=== PATIENT | female | born 1955 ===

== ENCOUNTER 2016-11-10 18:21 | Emergency (ER) | payer BC ==
[2016-11-10 19:14] VITALS: BP 158/66
--- NOTE | 2016-11-10 19:22 | UC ---
Skin Complaint HPI - HPI Summary HPI Summary: 61 y/o female presents to the urgent care c/o infected mosquito bite in Rt lower leg for the past 3 days. Pt states her RT lower leg is red and swollen and painful to touch. It itches a lot, she has been scathing and she thinks this is the reason it got infected. Pt denies fever, SOB, chest pain, N/V/D. Pt has no other complains . - History of Current Complaint Chief Complaint: UCSkin Time Seen by Provider: 11/10/16 19:19 Stated Complaint: SKIN BUG BITES Hx Obtained From: Patient Onset/Duration: Gradual Onset, Lasting Days, Still Present Skin Exposure Onset/Duration: Days Ago Timing: Constant Onset Severity: Mild Current Severity: Moderate Pain Intensity: 5 Pain Scale Used: 0-10 Numeric Location: Discrete - RT lower leg Character: Swelling, Pruritus, Redness, Painful Aggravating: Touch Alleviating: Antihistamines Associated Signs & Symptoms: Positive: Negative, Tenderness. Negative: Nausea, Vomiting, Numbness, Difficulty Breathing, Fever, Throat Tightening Related History: Insect Bite/Sting - Allergy/Home Medications Allergies/Adverse Reactions: Allergies Allergy/AdvReac Type Severity Reaction Status Date / Time No Known Allergies Allergy Verified 11/10/16 19:14 Home Medications: Home Medications Acetaminophen [Tylenol 8 Hour Arthritis] 1,300 mg PO BID 11/10/16 [History Confirmed 11/10/16] Ascorbic Acid TAB* [Vitamin C TAB*] 500 mg PO DAILY 11/10/16 [History Confirmed 11/10/16] Multiple Vitamins W/ Minerals [Centrum Silver 50+Women] 1 tab PO DAILY 11/10/16 [History Confirmed 11/10/16] Tamsulosin CAP* [Flomax CAP*] 0.4 mg PO BEDTIME 11/10/16 [History Confirmed 02/16] Vitamin E 400 unit PO DAILY 11/10/16 [History Confirmed 11/10/16] Review of Systems Constitutional: Negative Skin: Rash - RT lower leg rash s/p insect bite Eyes: Negative ENT: Negative Respiratory: Negative Cardiovascular: Negative Gastrointestinal: Negative Genitourinary: Negative Motor: Negative Neurovascular: Negative Musculoskeletal: Negative Neurological: Negative Psychological: Negative All Other Systems Reviewed And Are Negative: Yes PMH/Surg Hx/FS Hx/Imm Hx Previously Healthy: Yes Respiratory History: Asthma - Surgical History Surgical History: Yes Surgery Procedure, Year, and Place: TUBAL. TONSILECTOMY - Family History Known Family History: Positive: Hypertension, Diabetes Family History: Pancreatic cancer - Social History Occupation: Employed Full-time Lives: With Family Alcohol Use: Rare Substance Use Type: None Smoking Status (MU): Never Smoked Tobacco Physical Exam Triage Information Reviewed: Yes Appearance: Well-Appearing, No Pain Distress, Well-Nourished, Obese Vital Signs: Initial Vital Signs Temp 98.7 F 11/10/16 19:08 Pulse 98 11/10/16 19:08 Resp 16 11/10/16 19:08 BP 158/66 11/10/16 19:08 Pulse Ox 96 11/10/16 19:08 Vital Signs Reviewed: Yes Eye Exam: Normal Eyes: Positive: Conjunctiva Clear - PERRLA, EOMI, fundi grossly normal ENT Exam: Normal ENT: Positive: Normal ENT inspection, Hearing grossly normal, Pharynx normal, Pharyngeal erythema, TMs normal Dental Exam: Normal Neck exam: Normal Neck: Positive: Supple, Nontender, No Lymphadenopathy Respiratory Exam: Normal Respiratory: Positive: Chest non-tender, Lungs clear, Normal breath sounds Cardiovascular Exam: Normal Cardiovascular: Positive: RRR, No Murmur, Pulses Normal Abdominal Exam: Normal Abdomen Description: Positive: Nontender, No Organomegaly, Soft. Negative: CVA Tenderness (R), CVA Tenderness (L) Bowel Sounds: Positive: Present Musculoskeletal Exam: Normal Musculoskeletal: Positive: Strength Intact, ROM Intact Neurological Exam: Normal Psychological Exam: Normal Skin: Positive: rashes - RT lower leg with several insect bite, one has become and erythematoud patch with indistict borders, swollen and tender to palpation. Size 4cm x5cm in size. center in yellowish drainage. Course/Dx - Course Course Of Treatment: 61 y/o female presents to the urgent care c/o infected mosquito bite in Rt lower leg for the past 3 days. Pt states her RT lower leg is red and swollen and painful to touch. It itches a lot, she has been scathing and she thinks this is the reason it got infected. Pt denies fever, SOB, chest pain, N/V/D. HX obtained. Dx Cellulitis of RT lower leg s/p insect bite. Pt Rx kelfex PO, Benadryl PO, and topical Caladryl. rash demarcated with a skin marker and Advised if rash doubles in size and if she develops fever to go to the ER for further treatmetn. Pt BP today lelvated w/o Hx of HTn. Pt advised to decrease salt in diet and monitor BP at home if it continues to be elevated to f /u with PCP for further management. Pt understood and agreed. - Differential Diagnoses - Skin Complaint Differential Diagnoses: Allergic Reaction, Cellulitis, Eczema, Lymphangitis, MRSA, Tick Born Illness, Urticaria - Diagnoses Provider Diagnoses: 1-Cellulitis of RT lower leg. 2-Elevated Blood pressure w/ o HX of HTN Discharge - Discharge Plan Condition: Stable Disposition: HOME Prescriptions: Calamine/Pramoxine LOTION* [Caladryl LOTION*] 1 applic .SEE ORDER [id number] PRN #1 btl PRN Reason: Pruritis Cephalexin CAP* [Keflex CAP*] 500 mg PO QID #28 cap diPHENhydraMINE PO* [Benadryl PO 50 MG CAP*] 50 mg PO TID PRN #21 cap PRN Reason: Pruritis Patient Education Materials: Cellulitis (ED), Insect Bite or Sting (ED), Low Sodium Diet (ED) Referrals: [facility] [Outside] - 3 Days Additional Instructions: 1-please take full course of antibiotics to avoid resistance. Apply medication to alleviate itchiness. If you develop fever or redness doubles in size despite taking the antibiotic, please go immediately to the ER for further management. Otherwise f/u with PCP for further management. 2- Your BP today is elevated, please decrease salt in your diet , monitor your BP if it continues to be elevated please f/u with your PCP for further management.
== END 2016-11-10 19:52 | disposition home or self-care (01) ==
LOC: UCCORT 18:21
DX: S80.861A Insect bite (nonvenomous), right lower leg, initial encounter (principal); L03.115 Cellulitis of right lower limb; W57.XXXA Bitten or stung by nonvenomous insect and other nonvenomous arthropods, initial encounter; Y93.9 Activity, unspecified; Y92.9 Unspecified place or not applicable; R03.0 Elevated blood-pressure reading, without diagnosis of hypertension; J45.909 Unspecified asthma, uncomplicated; E66.9 Obesity, unspecified
CPT/HCPCS: 99202; G0463